=== PATIENT | female | born 1955 | race Caucasian/White ===

== ENCOUNTER 2018-02-07 05:38 | Day surgery (SDC) | payer OTHER ==
[~2018-02-07] VITALS: Ht 154.9 cm; Wt 73.9 kg
[~2018-02-07 05:38] MED LIST: ACID REDUCER 1150 MG PO; CALCIUM 500 +1 EAC2 PO; HYDROCHLOROTHIA25 MG PO; MICRO-K10 ME2 PO; MOBIC7.5 MG PO; NORVASC2.5 MG PO
[2018-02-07 06:05] VITALS: BP 138/83
[2018-02-07 09:05] VITALS: BP 126/65
[2018-02-07 10:00] VITALS: BP 142/77
== END 2018-02-07 10:05 | disposition home or self-care (01) ==
LOC: SDC 05:38
DX: H35.342 Macular cyst, hole, or pseudohole, left eye (principal); H35.372 Puckering of macula, left eye; K21.9 Gastro-esophageal reflux disease without esophagitis; G47.30 Sleep apnea, unspecified; I10 Essential (primary) hypertension; G89.29 Other chronic pain; M54.5 Low back pain; E66.9 Obesity, unspecified; Z88.0 Allergy status to penicillin; Z90.710 Acquired absence of both cervix and uterus
CPT/HCPCS: J0330; J0690; J1100; J1120; J1885; J2795; J3300